=== PATIENT | male | born 1980 | race Caucasian/White ===

== ENCOUNTER 2024-11-17 14:31 | Outpatient (CLI) | payer OTHER ==
--- NOTE | 2024-11-17 15:36 | RADIOLOGY REPORT ---
CT CT SINUS Indication: CONCUSSION W LOC OF 30 MINUTES OR LESS, INIT EXAM DATE: 11/17/2024 02:58 PM COMPARISON: None TECHNIQUE: CT of the paranasal sinuses without intravenous contrast. RADIATION DOSE: CTDIvol: 55 mGy, DLP: 674 mGy*cm FINDINGS: The mastoids are well pneumatized. Right maxillary sinus mucosal retention cyst/polyp measuring 1.7 cm. 8 mm right maxillary sinus mucos al retention cyst / polyp. Mild mucosal thickening ethmoids. Sphenoid sinus septum deviated to the ri ght. Nasal septum midline. Bilateral maxillary infundibula patent. The orbits, retrobulbar spaces are unremarkable. IMPRESSION: Maxillary sinus mucosal retention cysts / polyps measuring 1.7 cm, 0.8 cm. Mild ethmoid sinus mucosal thickening.
== END 2024-11-17 23:59 | disposition home or self-care (01) ==
LOC: RAD 14:31
PROVIDERS: ATTEND Student in an Organized Health Care Education/Training Program
DX: S06.0X1A Concussion with loss of consciousness of 30 minutes or less, initial encounter (principal); J32.0 Chronic maxillary sinusitis; J32.2 Chronic ethmoidal sinusitis; V89.2XXD Person injured in unspecified motor-vehicle accident, traffic, subsequent encounter
CPT/HCPCS: 70486